=== PATIENT | female | born 1985 | race Caucasian/White ===

== ENCOUNTER 2017-01-30 10:16 | Inpatient (IN) ==
[2017-01-30] MEDS ORDERED: MEPERIDINE 50 MG/1 ML VIAL IV PRN (10:34)
[2017-01-30] MEDS ORDERED: ONDANSETRON 4 MG/2 ML VIAL IV PRN (10:34)
[2017-01-30] MEDS ORDERED: OXYTOCIN/LR 20 UNIT/1,000 ML BAG IV SCH (11:00)
[2017-01-30] MEDS: LACTATED RINGERS 1,000 ML IV SCH ×2 (11:03→12:25)
[2017-01-30 11:04] LABS: Basophils % 0.4 % (0.0-0.8); Eosinophils # 0.1 10*3/uL (0.0-0.87); Hematocrit 29.1 VOL% (35.7-47.0); Hemoglobin 9.9 GM/DL (12.0-16.0); Immature Granulocytes % 0.6 %; Immature Granulocytes Absolute 0.05 #; Lymphocytes # 1.5 10*3/uL (1.4-4.0); Mean Corpuscular Hemoglobin 29 PG (27-34); Mean Corpuscular Volume 85.3 FL (87-102); Mean Platelet Volume 9.7 FL (9.6-12.0); Monocytes # 0.3 10*3/uL (0.11-0.8); Monocytes % 4.1 % (1.7-12.7); Neutrophils # 6.3 10*3/uL (1.4-7.4); Neutrophils % 75.9 % (38.7-73.9); Platelet Count 305 T/CUMM (130-400); Red Blood Count 3.41 MC/CUMM (3.8-5.5); Red Cell Distribution Width 14.1 % (9.3-17.3); White Blood Count 8.3 T/CUMM (4-12)
[2017-01-30] MEDS ORDERED: INFLUENZA VIRUS VACCINE 0.5 ML SYRINGE IM ONE (11:19)
[2017-01-30] MEDS ORDERED: FAMOTIDINE 20 MG/2 ML VIAL IV ONE (12:02)
[2017-01-30] MEDS ORDERED: CITRIC ACID/SODIUM CITRATE 30 ML UDCUP PO ONE (12:02)
[2017-01-30] MEDS ORDERED: hydrOXYzine HCL 25 MG/1 ML VIAL IM PRN (12:02)
[2017-01-30] MEDS ORDERED: fentaNYL 2 MCG/ROPIV 0.2% EPID 150 ML EPIDURAL SCH (12:02)
[2017-01-30] MEDS ORDERED: ePHEDrine 50 MG/ML AMP IV PRN (12:02)
[2017-01-30] MEDS ORDERED: PROMETHAZINE 25 MG/1 ML VIAL IM ONE (12:02)
[2017-01-30] MEDS ORDERED: diphenhydrAMINE 50 MG/1 ML VIAL IV PRN ×2 (12:02)
[2017-01-30] MEDS ORDERED: ONDANSETRON 4 MG/2 ML VIAL IV ONE (12:02)
[2017-01-30] MEDS ORDERED: AMPICILLIN INJ 2,000 MG in SODIUM CHLORIDE 0.9% 50 ML IV ONE (12:44)
[2017-01-30] MEDS ORDERED: LIDOCAINE 1% 50 ML VIAL ONE (13:00)
[2017-01-30] MEDS ORDERED: miSOPROStol 200 MCG TABLET ONE (13:01)
[2017-01-30] MEDS: IBUPROFEN 800 MG TABLET PO PRN (16:46)
--- NOTE | 2017-01-30 17:27 | OB/GYN History & Physical ---
History of Present Illness Chief complaint: Active Labor History of present illness: Ms. Flores is a 31 year old female, A2 at 38w2d gestation. Pt was seen in the office this am and was 5cm with bulging BOW and bloody show. Sent in for admission for mgt active labor. Reports good movements and irregular contractions. Pt has had good care. PN labs WNL Has a hx of deliveries at 36wk gestation. 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[place], [place] Home Medications Medication Instructions Recorded Confirmed Type Multivitamin () [ 1 tablet PO DAILY 12/12/16 01/30/17 History Vitamin] Allergies Allergy/AdvReac Type Severity Reaction Status Date / Time No Known Allergies Allergy Unverified 12/12/16 22:54 Medical,Surgical,& Family Hx - Medical History Cardio: History of: Cardiovascular Problems (VSD) Reproductive: History of: Complication ( delivery with prior ) No history of: Ectopic - Surgical History Reproductive Surgeries: Patient denies;: Section - Social History Smoking Status: Never smoker Frequency of Alcohol Use: None Type of Drug Use: None Exam [employer] - Constitutional Vitals: Vital Signs Temp Pulse Resp BP Pulse Ox 01/30/17 17:00 67 20 116/64 99 01/30/17 16:30 70 20 124/73 100 01/30/17 16:00 97.8 F 89 20 138/61 99 General appearance: normal weight, no acute distress - Antepartum / Post Antepartum Exam Cervix - Dilatation: 5-6 Effacement: 80 Station: -2 Rupture: AROM with amniohook at approx 1220, moderate amt clear fluid, no odor Presentation: Vertex Heart Rate: 140s, moderate variability, pos accels, Category 1 tracing [place]: UCs q3-5m, 60-90s, moderate by palpation with soft resting tone Uterus exam: Present: normal size (gravid) - Head Head exam: Present: normal inspection - Respiratory Respiratory exam: Present: clear to auscultation bilaterally - Cardiovascular Cardiovascular exam: Present: regular rate and rhythm - Extremities Exam Extremities exam: Present: normal inspection - Neurological Exam Neurological exam: Present: alert, oriented X3, normal gait - Psychiatric Psychiatric exam: Present: normal affect, normal mood - Skin Skin exam: Present: normal color, warm, dry Assessment and Plan - Time spent with patient Time spent with patient: Less than 30 minutes (1) Active labor at term Status: Acute Assessment and plan: Augment with Pitocin per protocol, Epidural if pt desires Current Visit: Yes (2) 38 weeks gestation of Status: Acute Current Visit: Yes (3) Supervision of with other poor reproductive or obstetric history, third trimester Status: Acute Current Visit: Yes Results - Labs CBC & BMP: 01/30/17 10:59 Lab Results: I have reviewed the past 24 hour labs Quality Measures - VTE Contraindication to Pharmacological VTE Prophylaxis: Continuous Epidural Infusion
--- NOTE | 2017-01-30 17:36 | Operative Note ---
Date of procedure: 01/30/17 Pre-op diagnosis: Active labor, 38 wks gestation, hx poor obstetric history Post-op diagnosis: other (Normal vaginal delivery) Procedure: Patient complete @ 1308. Controlled viable female infant IRWIN position @ 1319. Shoulders and body delivered without difficulty. Nose and mouth bulb suctioned and infant to mother's abd. Cord clamped and cut after pulsations stopped. Spontaneous placenta delivery at 1322. Pitocin infusion increased to bolus rate. Placenta inspected and intact with 3 vessel cord. Perineum inspected and intact. Fundus firm @ U-2, ML. Small to moderate lochia. Mother and stable. Apgars 9/9, Weight 6#7oz. Anesthesia: none Surgeon / Physician: Lacie Villegas Estimated blood loss: other (200mL) Specimens: other (Placenta to pathology for inspection) Condition: stable Results - Labs CBC & BMP: 01/30/17 10:59 Lab Results: I have reviewed the past 24 hour labs Discharge Plan - Discharge Medications No Action Multivitamin () [ Vitamin] 1 tablet PO DAILY - Follow Up or Referral - Forms/Instructions
--- NOTE | 2017-01-30 17:49 | Discharge Summary ---
<Lacie Villegas - Last Filed: 01/30/17 17:47> Hospital Course - Hospital Course Hospital Course: Admitted to L&D for mgt active labor. Progressed to complete and delivered without complications, No anesthesia. Diagnosis - Discharge Diagnosis (1) Active labor at term Status: Resolved (2) 38 weeks gestation of Status: Acute (3) Supervision of with other poor reproductive or obstetric history, third trimester Status: Acute (4) Vaginal delivery Status: Acute Specialty Discharge - Follow Up or Referrals Follow up with: Lacie Villegas CNM [Physician] - 02/13/17 10:15 am Discharge Plan - Discharge Data Disposition: Disch To Home/Self Care Discharge Diet: advance to your usual diet Activity: resume usual activities as tolerated, other (Pelvic rest) Hygiene: may shower Driving: not for (1-2 weeks) Contact your physician if you experience:: fever over 101, Difficulty voiding, Nausea/Vomiting, Shortness of breath, Bleeding, pain uncontrolled by pain medications - Discharge Medications New Ibuprofen Tab [Motrin Tab] 800 mg PO Q6H PRN #30 tablet PRN Reason: Pain Continue Multivitamin () [ Vitamin] 1 tablet PO DAILY - Follow Up or Referral Follow Up: Lacie Villegas CNM [Physician] - 02/13/17 10:15 am - Forms/Instructions Instructions: Iron Supplements (By mouth), Ibuprofen (By mouth), Vaginal Delivery (DC), Bleeding (DC) Exam - Constitutional Vitals: Period Temp Pulse Resp BP Sys/Dutton Pulse Ox Last 24 Hr 96.5 F-97.6 F 55-71 16-20 103-121/51-72 97-99 DS: Provider Date of admission: 01/30/17 10:34 Primary care physician: . No PCP Attending physician on admission: Alissa Christie DO Consults: 01/30/17 10:35 Consult to Anesthesiology [CONS] Routine Consulting Provider: Reason for Anesthesiology: Epidural Consult Comment: Epidural for pain managment Discharging clinician: Lacie Villegas CNM <Praveen Lai - Last Filed: 02/01/17 11:47> Diagnosis - Discharge Diagnosis (1) Vaginal delivery Status: Acute
[2017-01-30] MEDS ORDERED: OXYTOCIN/LR 20 UNIT/1,000 ML BAG IV ONE (18:37)
[2017-01-31] MEDS: IBUPROFEN 800 MG TABLET PO PRN ×2 (04:45→17:55)
[2017-01-31 07:18] LABS: Basophils # 0.1 10*3/uL (0.0-0.2); Basophils % 0.5 % (0.0-0.8); Eosinophils # 0.1 10*3/uL (0.0-0.87); Eosinophils % 0.7 % (0.00-10.9); Hematocrit 21.1 VOL% (35.7-47.0); Immature Granulocytes % 0.9 %; Immature Granulocytes Absolute 0.09 #; Lymphocytes # 2.2 10*3/uL (1.4-4.0); Lymphocytes % 21.6 % (21.3-54.2); Mean Corpuscular HGB Conc 34.6 GM/DL (32-36); Mean Corpuscular Hemoglobin 30 PG (27-34); Mean Corpuscular Volume 85.4 FL (87-102); Mean Platelet Volume 10.2 FL (9.6-12.0); Monocytes # 0.4 10*3/uL (0.11-0.8); Monocytes % 4.1 % (1.7-12.7); Neutrophils # 7.3 10*3/uL (1.4-7.4); Neutrophils % 72.2 % (38.7-73.9); Platelet Count 254 T/CUMM (130-400); Red Cell Distribution Width 13.8 % (9.3-17.3); White Blood Count 10.1 T/CUMM (4-12)
[2017-01-31 07:21] LABS: Hemoglobin 7.3 GM/DL (12.0-16.0); Red Blood Count 2.47 MC/CUMM (3.8-5.5)
[2017-01-31] MEDS: FERROUS SULFATE 325 MG TABLET PO SCH ×2 (09:17→20:45)
[2017-02-01 09:06] VITALS: BP 111/51
[2017-02-01] MEDS: IBUPROFEN 800 MG TABLET PO PRN (09:59)
[2017-02-01] MEDS: FERROUS SULFATE 325 MG TABLET PO SCH (09:59)
--- NOTE | 2017-02-01 11:18 | Pathology Report from [facility] ---
[employer] ACCESSION # : [id number] PATIENT NAME : Jewell Flores ORDERING DR : JAMES MISHRA DO CLINICAL HX: IUP @ 38 wks gestation, active labor POST-OP DX: Same SPECIMEN INFO: Placenta GROSS DESCRIPTION: Received fresh labeled JEWELL FLORES & PLACENTA consists of a 405 gm placenta measuring 18.1 x 16.5 x 1.8 cm. The membranes are pink mckenna and translucent. The umbilical cord is pericentrally inserted, contains three vessels and is 66 cm. The surface is sampson mckenna. The maternal surface is beefy red with intact cotyledons and scattered areas of calcification noted. No gross abnormalities are seen on sectioning. Sections submitted A- membranes and cord, B- and maternal surfaces. DIAGNOSIS FOR JEWELL FLORES: PLACENTA, MEMBRANES, UMBILICAL CORD: Focal placental infarction with dystrophic calcification, mild intervillous blood. Tri -vessel umbilical cord, pericentrally inserted. Membranes with focal acute and chronic inflammation and attached blood. COLLECTED DATE: 01/31/2017 [facility] REPORT DATE: 02/01/2017 ELECTRONICALLY SIGNED BY: Rk Hein M.D. 02/01/2017 - 9:16:54 MELVIN
--- NOTE | 2017-02-01 11:47 | OB/GYN Progress Note ---
Assessment and Plan (1) Vaginal delivery Status: Acute Assessment and plan: Discharge planning today Current Visit: Yes [employer] TESTER - PN: Subj Interval history: No complaints Exam W[employer] T[employer] TESTER - Constitutional Vitals: Vital Signs Temp Pulse Resp BP Pulse Ox 02/01/17 08:00 97.6 F 55 L 16 111/51 99 02/01/17 04:00 96.5 F L 62 18 103/60 98 02/01/17 03:00 18 02/01/17 01:00 18 02/01/17 00:00 96.5 F L 58 L 18 111/64 99 01/31/17 23:00 18 01/31/17 20:00 97.3 F L 64 18 121/72 99 01/31/17 15:37 96.7 F L 71 20 117/62 97 General appearance: no acute distress - Antepartum / Post Post Exam Abdomen obstetrics: Present: bowel sounds normal Vagina: Present: normal moisture Uterus exam: Present: normal size, normal contour Anus/Rectum: Present: normal perianal skin - Head Head exam: Present: normocephalic - Respiratory Respiratory exam: Present: clear to auscultation bilaterally - Cardiovascular Cardiovascular exam: Present: regular rate and rhythm - GI/Abdominal GI/Abdominal exam: Present: normal bowel sounds, soft - Extremities Exam Extremities exam: Present: normal inspection - Back Exam Back exam: Present: normal inspection - Neurological Exam Neurological exam: Present: alert, oriented X3 - Psychiatric Psychiatric exam: Present: normal affect, normal mood - Skin Skin exam: Present: normal color, warm Results - Labs CBC & BMP: 01/31/17 06:27
== END 2017-02-01 12:35 | disposition home or self-care (01) | DRG 775 ==
LOC: N.LDOUT 10:16 → N.LD 10:19 → N.OB 16:12
PROVIDERS: ADMIT Obstetrics & Gynecology; ATTEND Obstetrics & Gynecology